=== PATIENT | male | born 1995 ===

== ENCOUNTER 2021-02-06 09:12 | Inpatient (IN) | payer OTHER ==
[~2021-02-06] VITALS: Ht 182.9 cm; Wt 133.8 kg
[2021-02-06 10:26] LABS: HEMOGLOBIN 14.5 gm/dl (14.0-17.5); RED BLOOD COUNT 4.95 M/UL (4.20-5.50); WHITE BLOOD COUNT 16.6 K/UL (4.5-11.0)
[2021-02-06 10:41] LABS: BUN/CREATININE RATIO 8 (0-10)
[2021-02-06] MEDS ORDERED: TYLENOL EXTRA500 MG PO (15:51)
[2021-02-07] MEDS ORDERED: ELIQUIS5 M1 PO (18:22)
[2021-02-07] MEDS ORDERED: LOPRESSOR 25 MG25 MG PO (18:22)
[2021-02-08 05:41] LABS: HEMOGLOBIN 14.3 gm/dl (14.0-17.5); RED BLOOD COUNT 4.9 M/UL (4.20-5.50)
[2021-02-08 05:42] LABS: WHITE BLOOD COUNT 24.7 K/UL (4.5-11.0)
[2021-02-08 07:05] LABS: BUN/CREATININE RATIO 17 (0-10)
--- NOTE | 2021-02-08 14:05 | NUR ---
PATIENTS ROOM AIR SATURATION IS 86%
[2021-02-10 07:08] LABS: HEMOGLOBIN 13.1 gm/dl (14.0-17.5); RED BLOOD COUNT 4.79 M/UL (4.20-5.50); WHITE BLOOD COUNT 19.8 K/UL (4.5-11.0)
[2021-02-10 09:56] LABS: BUN/CREATININE RATIO 24 (0-10)
[2021-02-11] MEDS ORDERED: HYDROCODON-ACE1 EAC4 PO (15:20)
== END 2021-02-11 20:00 | disposition home or self-care (01) | DRG 177 ==
LOC: ER1 09:12 → CDU 15:15 → PROG CARE 18:06
PROVIDERS: Emergency Medicine; Internal Medicine Pulmonary Disease; ADMIT Internal Medicine
PROC: XW033E5 Introduction of Remdesivir Anti-infective into Peripheral Vein, Percutaneous Approach, New Technology Group 5 (ICD-10-PCS; principal; 2021-02-06)
PROC: 3E0333Z Introduction of Anti-inflammatory into Peripheral Vein, Percutaneous Approach (ICD-10-PCS; 2021-02-06)
PROC: B24BZZZ Ultrasonography of Heart with Aorta (ICD-10-PCS; 2021-02-07)
DX: U07.1 COVID-19 (principal); J12.82 Pneumonia due to coronavirus disease 2019; J96.01 Acute respiratory failure with hypoxia; I26.99 Other pulmonary embolism without acute cor pulmonale; R65.11 Systemic inflammatory response syndrome (SIRS) of non-infectious origin with acute organ dysfunction; J98.11 Atelectasis; E87.2 Acidosis; Z68.41 Body mass index [BMI] 40.0-44.9, adult; E66.01 Morbid (severe) obesity due to excess calories; I10 Essential (primary) hypertension; Z79.899 Other long term (current) drug therapy
CPT/HCPCS: ECHO; 36415; 71045; 80048; 80053; 82550; 82553; 82728; 83605; 83615; 84484; 85025; 85027; 85379; 85384; 85610; 85730; 87040; 87081; 93005; 93306; 94760; 96374; 99285; J0360; J0456; J1100; J1644; J1650; J1956; J2405; J2543; J7030; Q9967; U0002

== ENCOUNTER → 2021-03-26 | Outpatient (CLI) | payer OTHER ==
[~2021-03-26] MED LIST: ELIQUIS5 M1 PO; HYDROCODON-ACE1 EAC4 PO; LOPRESSOR 25 MG25 MG PO; TYLENOL EXTRA500 MG PO
== END ==
LOC: EXRD 11:14
DX: U07.1 COVID-19 (principal); J12.82 Pneumonia due to coronavirus disease 2019; J98.11 Atelectasis
CPT/HCPCS: 71046